=== PATIENT | female | born 1985 | race Caucasian/White ===

== ENCOUNTER 2022-10-23 11:51 | Outpatient (REF) | payer OTHER, SELFPAY ==
--- NOTE | ~2022-10-23 | XR_ITS ---
EXAMINATION: XR FOOT, LEFT CLINICAL INFORMATION: Left foot pain following injury. Dropped a heavy object on foot. COMPARISON: None available. TECHNIQUE: AP, lateral, and oblique views of the left foot. FINDINGS: Mildly displaced, oblique fracture through the medial aspect of the 5th proximal phalangeal head. This contacts the interphalangeal joint articular surface with a fracture gap measuring up to 0.1 cm. Surrounding soft tissue swelling. No dislocation. No additional fracture. No concerning lytic or blastic osseous lesion. No abnormal soft tissue calcification. XR/XR foot LT min 3V IMPRESSION: Mildly displaced, oblique fracture through the medial aspect of the 5th proximal phalangeal head.
== END 2022-10-23 11:52 | disposition home or self-care (01) ==
LOC: HO.HHCX 11:51
PROVIDERS: Visit Provider Emergency Medicine
DX: S99.922A Unspecified injury of left foot, initial encounter (principal)
CPT/HCPCS: 73630